=== PATIENT | female | born 1985 | race Caucasian/White ===

== ENCOUNTER 2023-01-29 16:28 | Outpatient (CLI) | payer OTHER ==
[2023-01-29 17:32] LABS: Hematocrit 35.5 % (34.9-44.5); Hemoglobin 12.1 g/dL (12.0-15.5); Mean Corpuscular HGB CONC 34.1 g/dL (32.0-36.0); Mean Corpuscular Hemoglobin 29.3 pg (27.0-33.0); Mean Platelet Volume 8.9 fl (7.4-10.4); Platelet Count 399 10x3/uL (150-450); RBC Distribution Width 12.1 % (11.5-14.5); Red Blood Cell (RBC) Count 4.13 10x6/uL (3.90-5.03); White Blood Cell (WBC) Count 8.7 10x3/uL (3.5-10.5)
[2023-01-29 17:37] LABS: BHCG - Serum Negative (NEGATIVE); Pregs Control Background? CLEAR/WHITE (CLR/WHITE); Pregs Control Bar Appear? YES (CONTROL BAR)
== END 2023-01-29 16:29 | disposition home or self-care (01) ==
LOC: CSHLAB 16:28
PROVIDERS: ATTEND Obstetrics & Gynecology
DX: Z01.812 Encounter for preprocedural laboratory examination (principal); N81.2 Incomplete uterovaginal prolapse
CPT/HCPCS: 84703; 85027; 86850; 86900; 86901

== ENCOUNTER 2023-01-31 06:05 | Day surgery (SDC) | payer OTHER ==
[2023-01-30 11:24] VITALS: BMI 38.5
[2023-01-31] MEDS ORDERED: Gabapentin 300 MG CAP ONE (06:21)
[2023-01-31] MEDS ORDERED: CeleCOXIB 100 MG CAP ONE (06:22)
[2023-01-31] MEDS ORDERED: Lidocaine 1% (PF) 30 ML VIAL ONE (06:32)
[2023-01-31] MEDS ORDERED: EPINEPHrine 1 MG/ML VIAL ONE (06:32)
[2023-01-31] MEDS ORDERED: Bupivacaine PF 0.5% 30 ML VIAL ONE (06:33)
[2023-01-31] MEDS ORDERED: Midazolam HCl 2 mg/2 ml Vial ONE (06:55)
[2023-01-31] MEDS ORDERED: PHENYLEPHRINE-NS 100 MCG/ML 10 ML SYRINGE ONE (06:55)
[2023-01-31] MEDS ORDERED: Rocuronium Bromide 10 MG/ML (10ML VIAL) ONE (06:55)
[2023-01-31] MEDS ORDERED: Albuterol HFA (OR) 200 PUFF INH ONE (06:55)
[2023-01-31] MEDS ORDERED: Dexamethasone 4 mg/ml Vial ONE (06:55)
[2023-01-31] MEDS ORDERED: Fentanyl 250 MCG/5 ML VIAL ONE (06:55)
[2023-01-31] MEDS ORDERED: PROPOFOL 40 ML ONE (06:55)
[2023-01-31] MEDS ORDERED: Glycopyrrolate 0.2 MG/ML 5 ML SYRINGE ONE (06:55)
[2023-01-31] MEDS ORDERED: Lidocaine 2% PF 5 ML VIAL ONE (06:55)
[2023-01-31] MEDS ORDERED: Ketorolac Tromethamine 30 MG/ML VIAL ONE (06:55)
[2023-01-31] MEDS ORDERED: Simethicone Chewable 80 MG TAB PO PRN (07:10)
[2023-01-31] MEDS ORDERED: Ondansetron PF 4 MG/2 ML Vial IVP PRN (07:10)
[2023-01-31] MEDS ORDERED: Promethazine HCl 25 MG/ML VIAL IM PRN (07:10)
[2023-01-31] MEDS ORDERED: Bisacodyl 10 MG SUPP PR PRN (07:10)
[2023-01-31] MEDS ORDERED: HYDROcodone/Acetaminophen 10/325 mg Tablet PO PRN (07:10)
[2023-01-31] MEDS ORDERED: diphenhydrAMINE 25 MG CAP PO PRN (07:10)
[2023-01-31] MEDS ORDERED: Acetaminophen 325 MG TAB PO PRN (07:10)
[2023-01-31] MEDS ORDERED: Glucagon 1 MG/ML KIT IM PRN (07:14)
[2023-01-31] MEDS ORDERED: Dextrose 5% in Water 1,000 ML IV PRN (07:14)
[2023-01-31] MEDS ORDERED: Dextrose 50% Abboject 50 ML SYRINGE SLOW IVP PRN (07:14)
[2023-01-31] MEDS ORDERED: CEFAZOLIN 2 GM VIAL ONE (07:26)
[2023-01-31] MEDS ORDERED: SUGAMMADEX SODIUM 200 MG/2 ML VIAL ONE (07:27)
[2023-01-31] MEDS ORDERED: Sevoflurane 250 ML INH ANEST BOTTLE ONE (07:28)
[2023-01-31] MEDS ORDERED: Meperidine HCl/PF 25 MG/ML VIAL ONE (08:44)
[2023-01-31] MEDS: Lactated Ringer's 1,000 ML IV SCH ×2 (12:09→16:35)
[2023-01-31] MEDS: Morphine 2 MG/ML VIAL SLOW IVP PRN ×3 (12:12→21:19)
[2023-01-31] MEDS: HYDROcodone/Acetaminophen 10/325 mg Tablet PO PRN (19:29)
[2023-01-31] MEDS: Ibuprofen 800 MG TAB PO SCH (21:21)
[2023-02-01] MEDS: Lactated Ringer's 1,000 ML IV SCH ×2 (01:16→07:59)
[2023-02-01] MEDS: Morphine 2 MG/ML VIAL SLOW IVP PRN ×2 (01:18→06:02)
[2023-02-01] MEDS: HYDROcodone/Acetaminophen 10/325 mg Tablet PO PRN ×2 (03:55→10:15)
[2023-02-01 04:15] LABS: Hematocrit 28.3 % (34.9-44.5); Hemoglobin 9.7 g/dL (12.0-15.5); Mean Corpuscular HGB CONC 34.3 g/dL (32.0-36.0); Mean Corpuscular Hemoglobin 29.1 pg (27.0-33.0); Mean Platelet Volume 9.1 fl (7.4-10.4); Platelet Count 302 10x3/uL (150-450); RBC Distribution Width 12.2 % (11.5-14.5); Red Blood Cell (RBC) Count 3.33 10x6/uL (3.90-5.03); White Blood Cell (WBC) Count 9.4 10x3/uL (3.5-10.5)
[2023-02-01 04:16] VITALS: TEMP 98.3
[2023-02-01 07:53] VITALS: BP 112/59
[2023-02-01] MEDS: Ibuprofen 800 MG TAB PO SCH (07:57)
[2023-02-01] MEDS ORDERED: Losartan 25 MG TAB PO SCH (09:00)
== END 2023-02-01 11:11 | disposition home or self-care (01) ==
LOC: CSHSDC 06:05 → CSHPP 12:04 → UNDOADMIN 12:04 → UNDODISIN 02-01 11:11 → CSHSDC 02-01 11:11
PROVIDERS: ATTEND Obstetrics & Gynecology
PROC: 0UB70ZZ Excision of Bilateral Fallopian Tubes, Open Approach (ICD-10-PCS; principal; 2023-01-31)
PROC: 0JQC0ZZ Repair Pelvic Region Subcutaneous Tissue and Fascia, Open Approach (ICD-10-PCS; principal; 2023-01-31)
PROC: 0UT90ZZ Resection of Uterus, Open Approach (ICD-10-PCS; principal; 2023-01-31)
PROC: 0UB10ZZ Excision of Left Ovary, Open Approach (ICD-10-PCS; principal; 2023-01-31)
DX: N81.2 Incomplete uterovaginal prolapse (principal); N83.02 Follicular cyst of left ovary; N80.03 Adenomyosis of the uterus; N73.6 Female pelvic peritoneal adhesions (postinfective); R19.2 Visible peristalsis; I10 Essential (primary) hypertension
CPT/HCPCS: 36415; 36416; 85027; 88307; J0171; J1100; J1885; J2001; J2175; J2250; J2272; J2704; J3010; J7120; S0020